=== PATIENT | female | born 1990 | race Caucasian/White ===

== ENCOUNTER 2017-07-12 02:43 | Inpatient (IN) | payer MEDICAID ==
[~2017-07-12] VITALS: Ht 154.9 cm; Wt 56.7 kg
[2017-07-12] MEDS ORDERED: PREN-88 PO (03:34)
[2017-07-12] MEDS ORDERED: FOLI-43 PO (03:34)
[2017-07-12] MEDS ORDERED: OCD MT (03:34)
[2017-07-12] MEDS: LACTATED RINGERS 1,000 ML IV SCH ×3 (04:20→18:51)
[2017-07-12 06:30] LABS: BASOPHILS % 1.1 % (0.0-2.0); EOSINOPHILS % 1.1 % (0.0-5.0); HEMATOCRIT. 30.8 % (36.0-48.0); HEMOGLOBIN. 10.3 g/dL (12.0-16.0); LYMPHOCYTES % 30.8 % (20.0-50.0); MEAN CORPUSCULAR HEMOGLOBIN 27.8 pg (28.0-32.0); MEAN CORPUSCULAR VOLUME 83.4 fL (81.0-99.0); MEAN PLATELET VOLUME 10.2 fl (7.4-10.4); MONOCYTES % 9.3 % (2.0-8.0); NEUTROPHILS % 57.7 % (40.0-76.0); PLATELET 166 x1000/uL (130-400); RED CELL DISTRIBUTION WIDTH 13.8 % (11.6-14.6)
[2017-07-12 06:35] LABS: GLUCOSE URINE NEGATIVE (NEGATIVE); KETONES URINE NEGATIVE (NEGATIVE); LEUKOCYTE ESTERASE URINE NEGATIVE (NEGATIVE); NITRITE URINE NEGATIVE (NEGATIVE); OCCULT BLOOD URINE 3+ (NEGATIVE); PROTEIN URINE NEGATIVE (NEGATIVE); SPECIFIC GRAVITY URINE 1.009 (1.005-1.030); UROBILINOGEN URINE 0.2 E.U./dL (0.2-1.0)
[2017-07-12 06:37] LABS: INR 0.9; PARTIAL THROMBOPLASTIN TIME 27.8 sec (23.4-31.0); PROTHROMBIN TIME 9.3 sec (9.4-11.6)
[2017-07-12 06:46] LABS: CLARITY URINE HAZY (CLEAR); COLOR URINE YELLOW (YELLOW)
[2017-07-12 06:51] LABS: *AMPHETAMINES SCREEN URINE NEGATIVE (NEGATIVE); *BARBITURATES SCREEN URINE NEGATIVE (NEGATIVE); *BENZODIAZEPINES SCREEN URINE NEGATIVE (NEGATIVE); *COCAINE SCREEN URINE NEGATIVE (NEGATIVE); CANNABINOID URINE SCREEN NEGATIVE (NEGATIVE); METHADONE URINE SCREEN NEGATIVE (NEGATIVE); OPIATES URINE SCREEN NEGATIVE (NEGATIVE); PHENCYCLIDINE URINE SCREEN NEGATIVE (NEGATIVE)
[2017-07-12] MEDS ORDERED: CARBOPROST TROMETHAMINE 250 MCG/ML AMPUL IM PRN (08:45)
[2017-07-12] MEDS ORDERED: BUTORPHANOL TARTRATE 2 MG/ML VIAL IV PRN (08:45)
[2017-07-12] MEDS ORDERED: METHYLERGONOVINE MALEATE 0.2 MG/ML IM PRN (08:45)
[2017-07-12 11:39] LABS: CARBON DIOXIDE 21 mEq/L (21-32); CHLORIDE 110 mEq/L (98-107)
[2017-07-12 12:16] LABS: HEPATITIS B SURFACE ANTIGEN NEGATIVE; RUBELLA IGG 283.4 IU/mL (4.99-10)
[2017-07-12] MEDS ORDERED: NALOXONE HCL 0.4 MG/ML 1ML VIAL IM PRN (23:15)
[2017-07-12] MEDS ORDERED: LIDOCAINE HCL 1% 20ML VIAL (Pyxis) INJ INFIL SCH (23:15)
[2017-07-12] MEDS: DEXT 5%/LR + PITOCIN 20UNITS/L 1,000 ML IV SCH (23:33)
[2017-07-13] MEDS ORDERED: AMPICILLIN 2,000 MG in SODIUM CHLORIDE 0.9% 100 ML IV NR ×2
[2017-07-13 01:12] LABS: BASOPHILS % 0.6 % (0.0-2.0); EOSINOPHILS % 0.3 % (0.0-5.0); HEMOGLOBIN. 10.3 g/dL (12.0-16.0); LYMPHOCYTES % 25.6 % (20.0-50.0); MEAN CORPUSCULAR HEMOGLOBIN 27.6 pg (28.0-32.0); MEAN CORPUSCULAR VOLUME 83.2 fL (81.0-99.0); MEAN PLATELET VOLUME 9.8 fl (7.4-10.4); MONOCYTES % 6.6 % (2.0-8.0); NEUTROPHILS % 66.9 % (40.0-76.0); PLATELET 170 x1000/uL (130-400); RED BLOOD CELL COUNT 3.73 mill/uL (4.2-5.4); RED CELL DISTRIBUTION WIDTH 13.9 % (11.6-14.6)
[2017-07-13 01:19] LABS: CLARITY URINE CLEAR (CLEAR); COLOR URINE YELLOW (YELLOW); GLUCOSE URINE NEGATIVE (NEGATIVE); KETONES URINE NEGATIVE (NEGATIVE); LEUKOCYTE ESTERASE URINE TRACE (NEGATIVE); NITRITE URINE NEGATIVE (NEGATIVE); OCCULT BLOOD URINE 3+ (NEGATIVE); PH URINE 6.5 (4.5-8.0); PROTEIN URINE NEGATIVE (NEGATIVE); SPECIFIC GRAVITY URINE 1.007 (1.005-1.030); UROBILINOGEN URINE 0.2 E.U./dL (0.2-1.0)
[2017-07-13 01:26] LABS: INR 0.9; PARTIAL THROMBOPLASTIN TIME 29.1 sec (23.4-31.0); PROTHROMBIN TIME 9.4 sec (9.4-11.6)
[2017-07-13] MEDS: LACTATED RINGERS 1,000 ML IV SCH (03:33)
[2017-07-13] MEDS ORDERED: MISOPROSTOL 100MCG TABLET VG SCH (05:15)
[2017-07-13] MEDS ORDERED: AMPICILLIN 1,000 MG in SODIUM CHLORIDE 0.9% 50 ML IV SCH (06:00)
[2017-07-13 06:41] LABS: HEPATITIS B SURFACE AB < 3.1 mIU/mL
[2017-07-13 06:52] LABS: RUBELLA IGG 306.2 IU/mL (4.99-10)
[2017-07-13] MEDS ORDERED: BUPIVACAINE HCL/NS/PF EPIDURAL 100 ML EP ONE (07:40)
[2017-07-13] MEDS ORDERED: BUPIVACAINE HCL/PF 0.25% (2.5MG/ML) 10ML ONE (07:40)
[2017-07-13] MEDS ORDERED: FENTANYL CITRATE/PF 50MCG/ML 2ML VIAL ONE (07:40)
[2017-07-13] MEDS ORDERED: BUPIVACAINE HCL/NS/PF EPIDURAL 100 ML EP SCH (08:30)
[2017-07-13] MEDS ORDERED: ONDANSETRON HCL 4MG/2ML VIAL IV PRN (08:30)
[2017-07-13] MEDS ORDERED: DIPHENHYDRAMINE 50MG/ML VIAL IM PRN (08:30)
[2017-07-13] MEDS ORDERED: MORPHINE SULFATE/PF 1MG/ML 10ML AMP ONE (08:33)
[2017-07-13] MEDS ORDERED: MIDAZOLAM HCL 2 MG/2 ML VIAL ONE (08:33)
[2017-07-13] MEDS ORDERED: CEFAZOLIN SODIUM 1000MG/VIAL ONE (08:55)
[2017-07-13] MEDS ORDERED: ONDANSETRON HCL 4MG/2ML VIAL ONE (08:55)
[2017-07-13] MEDS ORDERED: SODIUM CHLORIDE 0.9% 10ML VIAL ONE ×2 (08:55→09:11)
[2017-07-13] MEDS ORDERED: PHENYLEPHRINE HCL 10 MG/ML 1ML (IV VIAL) IV ONE (09:01)
[2017-07-13] MEDS: DEXT 5%/LR + PITOCIN 20UNITS/L 1,000 ML IV SCH (09:13)
[2017-07-13] MEDS ORDERED: DEXT 5%/LR + PITOCIN 20UNITS/L 1,000 ML IV SCH (09:14)
[2017-07-13] MEDS ORDERED: BISACODYL 10MG SUPP PR PRN (09:15)
[2017-07-13] MEDS ORDERED: RHO(D) IMMUNE GLOBULIN 300 MCG/SYR IM PRN (09:15)
[2017-07-13] MEDS ORDERED: HYDROMORPHONE HCL/PF 2MG/ML CPJ IM PRN (09:15)
[2017-07-13] MEDS ORDERED: IBUPROFEN 400MG TABLET PO PRN (09:15)
[2017-07-13 11:09] LABS: HEMATOCRIT 29.4 % (36.0-48.0); HEMOGLOBIN 9.5 g/dL (12.0-16.0)
[2017-07-13 13:00] VITALS: BP 110/70
[2017-07-13 14:00] VITALS: BP 109/74
[2017-07-13] MEDS: ACETAMINOPHEN WITH CODEINE 300/30MG TABLET PO PRN (15:01)
[2017-07-13 18:20] VITALS: BP 100/53
[2017-07-13 20:20] VITALS: BP 110/74
[2017-07-14] MEDS: IBUPROFEN 800MG TABLET PO PRN (00:36)
[2017-07-14] MEDS: LACTATED RINGERS 1,000 ML IV SCH (01:32)
[2017-07-14 07:05] LABS: BASOPHILS % 0.3 % (0.0-2.0); EOSINOPHILS % 0.3 % (0.0-5.0); HEMATOCRIT. 21.9 % (36.0-48.0); HEMOGLOBIN. 7.3 g/dL (12.0-16.0); LYMPHOCYTES % 15.3 % (20.0-50.0); MEAN CORPUSCULAR HEMOGLOBIN 27.8 pg (28.0-32.0); MEAN CORPUSCULAR VOLUME 83.5 fL (81.0-99.0); MEAN PLATELET VOLUME 9.6 fl (7.4-10.4); MONOCYTES % 8.2 % (2.0-8.0); NEUTROPHILS % 75.9 % (40.0-76.0); PLATELET 103 x1000/uL (130-400); RED BLOOD CELL COUNT 2.62 mill/uL (4.2-5.4); RED CELL DISTRIBUTION WIDTH 14.3 % (11.6-14.6)
[2017-07-14 08:00] VITALS: BP 105/66
[2017-07-14 12:01] VITALS: BP 101/65
[2017-07-14 16:00] VITALS: BP 98/59
[2017-07-14] MEDS: ACETAMINOPHEN WITH CODEINE 300/30MG TABLET PO PRN (17:31)
[2017-07-14 19:45] VITALS: BP 105/67
[2017-07-14 23:55] VITALS: BP 109/63
[2017-07-15] MEDS: IBUPROFEN 800MG TABLET PO PRN (00:14)
[2017-07-15 03:45] VITALS: BP 100/61
[2017-07-15 07:48] VITALS: BP 96/68
[2017-07-15] MEDS ORDERED: TETANUS, DIPHTHERIA, PERTUSSIS VAC/PF 0.5ML (>7YR OLD) IM ONE (18:15)
[2017-07-15 19:30] VITALS: BP 102/68
== END 2017-07-15 20:30 | disposition home or self-care (01) | DRG 540 ==
LOC: OBSVTOIN 02:43 → L&D 02:43 → 8EST 07-13 13:23 → 7EST PP/OB 07-13 14:20
PROVIDERS: ADMIT Obstetrics & Gynecology; ATTEND Obstetrics & Gynecology
PROC: 10D00Z1 Extraction of Products of Conception, Low, Open Approach (ICD-10-PCS; principal; 2017-07-13 08:25)
DX: O32.2XX0 Maternal care for transverse and oblique lie, not applicable or unspecified (principal); O45.93 Premature separation of placenta, unspecified, third trimester; O60.14X0 Preterm labor third trimester with preterm delivery third trimester, not applicable or unspecified; O69.1XX0 Labor and delivery complicated by cord around neck, with compression, not applicable or unspecified; D64.9 Anemia, unspecified; O99.03 Anemia complicating the puerperium; Z3A.36 36 weeks gestation of pregnancy; Z37.0 Single live birth; Z82.49 Family history of ischemic heart disease and other diseases of the circulatory system
CPT/HCPCS: 36415; 76805; 80053; 80305; 81001; 85014; 85018; 85025; 85610; 85730; 86592; 86703; 86706; 86762; 86850; 86900; 86920; 87340; 88307; 90715; A4216; J0290; J0690; J2250; J2274; J2370; J2405; J2590; J3010; J3490; J7050; J7120